=== PATIENT | male | born 1960 | race Caucasian/White ===

== ENCOUNTER 2019-12-04 16:48 | Inpatient (IN) | payer OTHER ==
[2019-12-04] MEDS ORDERED: SODIUM CHLORIDE 0.9% 500 ML INFUS.BAG IV ONE (16:57)
[2019-12-04] MEDS ORDERED: METOCLOPRAMIDE HCL INJECTION 10 MG/2 ML VIAL IVPB ONE (16:57)
--- NOTE | 2019-12-04 16:57 | PDOC ---
Rapid Medical Evaluation Time Seen by Provider: 12/04/19 16:53 Medical Evaluation: 12/04/19 16:53 I performed a brief in-person evaluation of this patient. Pt is a 59 y/o male with h/o [place] LAD with stent, HTN, HLD who presents with a left sided ABBASI over the eye for the last 1 week. The ABBASI is now spreading to the R side. Tried Advil without much relief, took Claritin without relief. Ice packs help. Pertinent physical exam findings: No tenderness with tapping over the L temporal region. Speaking in full sentences. I have ordered the following: saline lock, reglan, benadryl, ct head; will defer lab orders to treating provider Patient to proceed to ED for further evaluation. Discharge Disposition - Diagnosis Headache - Referrals - Patient Instructions - Post Discharge Activity
[2019-12-04 18:05] LABS: BASO % 0.5 % (0-2.0); EOS % 1.2 % (0-4.5); HEMATOCRIT 43.7 % (35.4-49); HEMOGLOBIN 14.8 GM/dL (11.7-16.9); LYMPH % 17.2 % (8-40); MCHC 33.9 g/dl (32.0-35.9); MEAN CELL VOLUME 100.3 fl (80-96); MEAN PLT VOLUME 9.4 fl (7.5-11.1); MONO % 8.2 % (3.8-10.2); NEUT % 72.9 % (42.8-82.8); PLATELET COUNT 211 K/MM3 (134-434); RBC 4.35 M/mm3 (4.00-5.60); RDW 13.7 % (11.9-15.9); WHITE BLOOD COUNT 12.2 K/mm3 (4.0-10.0)
--- NOTE | 2019-12-04 18:27 | PDOC ---
History of Present Illness - General Chief Complaint: Headache Stated Complaint: HEADACHE Time Seen by Provider: 12/04/19 16:53 - History of Present Illness Initial Comments: The pt is a 59M w/ a history of NC (s/p stent 2005, Plavix/ASA), HTN, HLD who presents for evaluation of 1 week of ABBASI. He reports falling and hitting his head 10 days ago w/o LOC but otherwise no other incidents. His ABBASI started 7 days ago, if L frontal, radiates diffusely, is constant but waxes and wanes, and is not exacerbated or alleviated by anything he can identify. Pt has tried Advil with minimal relief. Pt denies vision changes, N/V, chest pain, trouble breathing, changes in sensation/strength, LOC, dizziness PMH: HTN, HLD, NC (s/p stent) PSH: Multiple b/l eye surgeries Meds: ASA, Plavix, HTN meds, statin Allergies: Denies SH: Smokes 1ppd, Social EtOH, Denies illicit drug use 12/04/19 18:22 Past History - Medical History Allergies/Adverse Reactions: Allergies Allergy/AdvReac Type Severity Reaction Status Date / Time No Known Allergies Allergy Verified 12/04/19 16:56 Home Medications: Ambulatory Orders Carvedilol Phosphate [Carvedilol ER] 10 mg PO DAILY 12/04/19 Clopidogrel Bisulfate [Plavix] 75 mg PO DAILY 12/04/19 Lisinopril [Prinivil] 10 mg PO DAILY 12/04/19 Rosuvastatin Calcium [Crestor] 10 mg PO HS 12/04/19 Cardiac Disorders: Yes (CAD STENT AGE 46 LAD) COPD: No HTN: Yes - Psycho-Social/Smoking History Smoking History: Current every day smoker Number of Cigarettes Smoked Daily: 20 Information on smoking cessation initiated: Yes - Substance Abuse Hx (Audit-C & DAST Scrn) How often the patient has a drink containing alcohol: 2-4 times / month Score: In Men: 4 or > Positive; In Women: 3 or > Positive: 2 Screen Result (Pos requires Nsg. Audit-10AR): Negative In the last yr the pt used illegal drug/Rx for NonMed reason: No Score: Yes response is considered Positive: 0 Screen Result (Positive result requires Nsg. DAST-10): Negative Review of Systems - Review of Systems Able to Perform ROS?: Yes Comments:: GENERAL/CONSTITUTIONAL: No fever or chills. No weakness HEAD, EYES, EARS, NOSE AND THROAT: No change in vision. No change in hearing. No sore throat CARDIOVASCULAR: No chest pain or shortness of breath RESPIRATORY: Denies cough, hemoptysis GASTROINTESTINAL: No nausea, vomiting, diarrhea or constipation GENITOURINARY: No dysuria, frequency, or change in urination MUSCULOSKELETAL: No joint or muscle swelling or pain. No neck or back pain SKIN: No rash NEUROLOGIC: No vertigo, loss of consciousness, or change in strength/sensation ENDOCRINE: No increased thirst. No abnormal weight change HEMATOLOGIC/LYMPHATIC: No anemia, easy bleeding, or history of blood clots ALLERGIC/IMMUNOLOGIC: No hives or skin allergy 12/04/19 18:30 Is the patient limited Kosovan proficient: No *Physical Exam - Vital Signs Last Vital Signs Temp Pulse Resp BP Pulse Ox 98.8 F 87 18 136/88 98 12/04/19 16:56 12/04/19 16:56 12/04/19 16:56 12/04/19 16:56 12/04/19 16:56 - Physical Exam GENERAL: Awake, alert, and oriented to person/place/time, in no acute distress HEAD: No signs of trauma, normocephalic, atraumatic EYES: Anisocoria (reported chronic 2/2 previous surgeries), pupils reactive, EOMI, sclera anicteric, conjunctiva clear ENT: Hearing grossly normal, nares patent, oropharynx clear without exudates. No uvular deviation. Moist mucosa LUNGS: No distress, speaks in full sentences, clear to auscultation bilaterally HEART: Regular rate and rhythm, normal S1 and S2, no murmurs appreciated, peripheral pulses normal and equal bilaterally ABDOMEN: Soft, nontender, normoactive bowel sounds. No guarding, no rebound EXTREMITIES: Normal inspection, Normal range of motion, no edema. No clubbing or cyanosis NEUROLOGICAL: Cranial nerves II through XII grossly intact. Normal speech, normal gait, no focal sensorimotor deficits SKIN: Warm, Dry 12/04/19 18:30 ED Treatment Course - LABORATORY CBC & Chemistry Diagram: 12/04/19 18:00 12/04/19 18:00 - Medications Given in the ED: ED Medications Discontinued Medications Generic Name Dose Route Start Last Admin Trade Name Freq PRN Reason Stop Dose Admin Diphenhydramine HCl 25 mg 12/04/19 16:57 12/04/19 18:03 Benadryl Injection - IVPUSH 12/04/19 16:58 Not Given ONCE ONE Metoclopramide HCl 10 mg 12/04/19 16:57 12/04/19 18:03 Reglan Injection - IVPB 12/04/19 16:58 Not Given ONCE ONE Sodium Chloride 1,000 ml 12/04/19 16:57 12/04/19 18:03 Normal Saline - IV 12/04/19 16:58 1,000 ml ONCE ONE Administration Medical Decision Making - Medical Decision Making The pt is a 59M w/ a history of NC (s/p stent 2005, Plavix/ASA), HTN, HLD who presents for evaluation of 1 week of ABBASI w/o associated neurol Labs, meds, and imaging ordered from [facility]/Pt initially worked up in [facility] -Benadryl, Reglan, IVF given CT head w/ acute subdural hematoma superifical to the left tentorium, medial to the anterior hippocampus, and left occipital lobe, and seen extending superiorly over the posterior interhemispheric falx above the splenium of the corpus callosum Case discussed w/ Dr. Hannon, agrees with transfer to [facility] for neurocritical care evaluation COVID swab sent WBC 12.2 No anemia Lytes overall unremarkable No ANUP LFTs overall unremarkable [facility] Transfer center contacted, awaiting return call from [facility] ECG w/ NSR; HR 77; QTc 409; no axis deviation; no acute ischemic changes At time of signout, pt still A&Ox3 w/o any neurologic deficits Pt refusing transfer to [facility] and states he has an accepting physician at [place] and is obtaining the name/specialty at this time 12/04/19 18:51 Pt accepted to [place] by Dr. Burkett ([facility]) 12/04/19 18:59 Discharge - Discharge Information Problems reviewed: Yes Clinical Impression/Diagnosis: Subdural hematoma Headache Qualifiers: Headache type: unspecified Headache chronicity pattern: acute headache Intractability: not intractable Qualified Code(s): R51 - Headache Condition: Guarded Disposition: TRANSFER ACUTE CARE/OTHER HOSP - Admission No - Follow up/Referral Referrals: Arnaldo Sanchez [Primary Care Provider] - - Patient Discharge Instructions - Post Discharge Activity - Transfer to Acute Care Facility Receiving Facility Name: [facility] Accepting Physician:: Dr. Burkett
[2019-12-04 18:28] LABS: INR 0.97 (0.83-1.09); PROTHROMBIN TIME (PATIENT) 11.5 SEC (9.7-13.0)
[2019-12-04 18:31] LABS: ACTIVATED PTT 31.9 SECONDS (25.2-36.5)
[2019-12-04 18:33] LABS: BILIRUBIN,TOTAL 0.5 mg/dL (0.2-1); BLOOD UREA NITROGEN 9.1 mg/dL (7-18); CALCIUM 9.1 mg/dL (8.5-10.1); CREATININE 0.7 mg/dL (0.55-1.3); POTASSIUM 4.9 mmol/L (3.5-5.1); TOT PROT 7.7 g/dl (6.4-8.2)
--- NOTE | 2019-12-04 18:35 | PDOC ---
*Physical Exam - Vital Signs Last Vital Signs Temp Pulse Resp BP Pulse Ox 98.8 F 87 18 136/88 98 12/04/19 16:56 12/04/19 16:56 12/04/19 16:56 12/04/19 16:56 12/04/19 16:56 - Physical Exam 12/04/19 18:26 awake alert lungs clear bilat heart rrr no mrg abd sot nt nd. ext wwp. nuero GCS 15. 5/5 all four ext. CN II - XII intact. speech clear alert oriented x 3. ED Treatment Course - LABORATORY CBC & Chemistry Diagram: 12/04/19 18:00 12/04/19 18:00 - ADDITIONAL ORDERS Additional order review: 12/04/19 18:00 RBC 4.35 MCV 100.3 H MCHC 33.9 RDW 13.7 MPV 9.4 Neutrophils % 72.9 Lymphocytes % 17.2 Monocytes % 8.2 Eosinophils % 1.2 Basophils % 0.5 - Medications Given in the ED: ED Medications Discontinued Medications Generic Name Dose Route Start Last Admin Trade Name Natacha PRN Reason Stop Dose Admin Diphenhydramine HCl 25 mg 12/04/19 16:57 12/04/19 18:03 Benadryl Injection - IVPUSH 12/04/19 16:58 Not Given ONCE ONE Metoclopramide HCl 10 mg 12/04/19 16:57 12/04/19 18:03 Reglan Injection - IVPB 12/04/19 16:58 Not Given ONCE ONE Sodium Chloride 1,000 ml 12/04/19 16:57 12/04/19 18:03 Normal Saline - IV 12/04/19 16:58 1,000 ml ONCE ONE Administration Medical Decision Making - Medical Decision Making 12/04/19 18:27 59 yo male h/o HTN HLD CAD , x/p stents. here with headache x 7 day. described as retro orbital behind left eye. constant. no associated n/v . no focal weakness. no change to speech, or vision changes. did have a minor head trauma 10 days ago, when slipped and hit his head on closet. no loc at the time. no other complaints. did not take anything for pain today. take asa and plavix daily, took today. PCP Daniel Discharge - Discharge Information Clinical Impression/Diagnosis: Headache - Follow up/Referral Referrals: Arnaldo Sanchez [Primary Care Provider] - - Patient Discharge Instructions - Post Discharge Activity
--- NOTE | 2019-12-04 18:44 | PDOC ---
Attending Attestation - Resident Resident Name: JoyRicky gallo - ED Attending Attestation I have performed the following: I have examined & evaluated the patient, The case was reviewed & discussed with the resident, I agree w/resident's findings & plan, Exceptions are as noted - HPI HPI: 12/04/19 18:37 59 yo male h/o HTN HLD CAD , x/p stents. here with headache x 7 day. described as retro orbital behind left eye. constant. no associated n/v . no focal weakness. no change to speech, or vision changes. did have a minor head trauma 10 days ago, when slipped and hit his head on closet. no loc at the time. no other complaints. did not take anything for pain today. take asa and plavix daily, took today. - Physicial Exam PE: 12/04/19 18:37 awake alert lungs clear bilat heart rrr no mrg abd soft nt nd ext wwp. nuero CN II - XII intact, strength 5/5 all four ext. skin warm and dry . alert oriented x 3. speech clear. pupils reactive , right pupil is irregular ( chronic ) anisocoria. - Medical Decision Making 12/04/19 18:41 59 yo male h/o cad htn hld on asa plavix here with headache. differential ich, traumatic injury, migraine, electrolyte abnormality, anemia. plan ct head labs, pain medication. pt initially seen by JERSON RIOS , ct head ordered. ct head with subdural hematoma superifical to the left tentorium, medial to the anterior hippocampus, and left occipital lobe, and seen extending superiorly over the posterior interhemispheric falx above the splenium of the corpus callosum d/w nuersurgery developmental electronics assembler Dr Hannon, who agreeable for transfer out of system. [facility] transfer initiated. 12/04/19 18:44 12/04/19 19:01 pt refusing transfer to [facility], requesting transfer to [facility] 12/04/19 19:03 [facility] [place] called. d/w nuerosurgery ICU fellow. who accepted by dr Burkett, , fax sheet sent to [phone] 12/04/19 19:13 Discharge - Discharge Information Problems reviewed: Yes Clinical Impression/Diagnosis: Subdural hematoma Headache Qualifiers: Headache type: unspecified Headache chronicity pattern: acute headache Intractability: not intractable Qualified Code(s): R51 - Headache Condition: Guarded Disposition: TRANSFER ACUTE CARE/OTHER HOSP - Admission No - Follow up/Referral Referrals: Arnaldo Sanchez [Primary Care Provider] - - Patient Discharge Instructions - Post Discharge Activity - Transfer to Acute Care Facility Receiving Facility Name: [facility]
[2019-12-04] MEDS ORDERED: ACETAMINOPHEN 1000 MG/100 ML VIAL (NON FORMULARY) IVPB ONE (19:23)
[2019-12-04] MEDS ORDERED: METOCLOPRAMIDE HCL INJECTION 10 MG/2 ML VIAL IVPUSH ONE (19:23)
--- NOTE | 2019-12-04 19:28 | PDOC ---
*Physical Exam - Vital Signs Last Vital Signs Temp Pulse Resp BP Pulse Ox 98.8 F 87 18 136/88 98 12/04/19 16:56 12/04/19 16:56 12/04/19 16:56 12/04/19 16:56 12/04/19 16:56 ED Treatment Course - LABORATORY CBC & Chemistry Diagram: 12/04/19 18:00 12/04/19 18:00 - ADDITIONAL ORDERS Additional order review: Laboratory Results 12/04/19 12/04/19 18:00 18:00 PT with INR 11.50 INR 0.97 PTT (Actin FS) 31.9 Sodium 133 L Potassium 4.9 Chloride 101 Carbon Dioxide 25 Anion Gap 7 L BUN 9.1 Creatinine 0.7 Est GFR (CKD-EPI)AfAm 119.72 Est GFR (CKD-EPI)NonAf 103.30 Random Glucose 105 Calcium 9.1 Total Bilirubin 0.5 AST 41 H ALT 39 Alkaline Phosphatase 119 H Total Protein 7.7 Albumin 4.0 12/04/19 18:00 RBC 4.35 MCV 100.3 H MCHC 33.9 RDW 13.7 MPV 9.4 Neutrophils % 72.9 Lymphocytes % 17.2 Monocytes % 8.2 Eosinophils % 1.2 Basophils % 0.5 - Medications Given in the ED: ED Medications Discontinued Medications Generic Name Dose Route Start Last Admin Trade Name Prasadq PRN Reason Stop Dose Admin Diphenhydramine HCl 25 mg 12/04/19 16:57 12/04/19 18:03 Benadryl Injection - IVPUSH 12/04/19 16:58 Not Given ONCE ONE Metoclopramide HCl 10 mg 12/04/19 16:57 12/04/19 18:03 Reglan Injection - IVPB 12/04/19 16:58 Not Given ONCE ONE Sodium Chloride 1,000 ml 12/04/19 16:57 12/04/19 18:03 Normal Saline - IV 12/04/19 16:58 1,000 ml ONCE ONE Administration Medical Decision Making - Medical Decision Making Pt was signed out to me by resident Dr. Nolasco, who explained the presentation, ED course, any pending results, and needed interventions. Pt pending transfer to [place] (day team spoke with Dr. Abdalla, Neuro ICU fellow). VSS and neuro exam unchanged from baseline. Pt receiving tylenol, reglan, benadryl for headache. Neuro ICU at [place] requesting repeat head CT for stability of bleed. Pt agreeable to plan. 12/04/19 19:25 Pt taken for repeat head CT. States headache improved after interventions. VSS. 12/04/19 21:57 CT unchanged from prior. Spoke with Dr. Canales (attending Dr. Hardy), accepted to neuro step-down unit. Pt pending transfer. BP 150s/80s, will medicate with IV labetalol push doses. 12/04/19 22:32 No step-down beds available, per transfer center. Will update us in the morning. Paged hospitalist team for admission. 12/04/19 23:00 Pt accepted to hospitalist team. Pt stable, comfortable. 12/04/19 23:45 Discharge - Discharge Information Problems reviewed: Yes Clinical Impression/Diagnosis: Subdural hematoma Headache Qualifiers: Headache type: unspecified Headache chronicity pattern: acute headache Intractability: not intractable Qualified Code(s): R51 - Headache Condition: Guarded - Admission Yes - Follow up/Referral Referrals: Arnaldo Sanchez [Primary Care Provider] - - Patient Discharge Instructions - Post Discharge Activity
[2019-12-04] MEDS ORDERED: ACETAMINOPHEN INJECTION 100 ML IVPB ONE (19:34)
[2019-12-04] MEDS ORDERED: METOCLOPRAMIDE HCL INJECTION 10 MG/2 ML VIAL ONE (19:34)
[2019-12-04] MEDS ORDERED: LABETALOL HCL 5 MG/1 ML (100MG/20 ML VIAL) IVPUSH ONE (22:29)
[2019-12-04] MEDS ORDERED: LABETALOL HCL 5 MG/1 ML (200MG/40ML VIAL) IVPB ONE (22:44)
[2019-12-05 01:20] VITALS: BMI 29.2
--- NOTE | 2019-12-05 05:58 | PN ---
Teaching Attending Note Name of Resident: Remy Luis ATTENDING PHYSICIAN STATEMENT I saw and evaluated the patient. I reviewed the resident's note and discussed the case with the resident. I agree with the resident's findings and plan as documented. SUBJECTIVE: OBJECTIVE: ASSESSMENT AND PLAN: Date of Service: December 04 2019 59 yo male h/o HTN HLD CAD , x/p stents. here with c/o headache x 7 days. Patient did have a minor head trauma 10 days ago, when slipped and hit his head on closet. Takes asa and plavix daily. CT head with subdural hematoma superifical to the left tentorium, medial to the anterior hippocampus, and left occipital lobe, and seen extending superiorly over the posterior interhemispheric falx above the splenium of the corpus callosum ED D/w neurosurgery front desk team member Dr Hannon, who agreeable for transfer out of system. [place] transfer initiated.
[2019-12-05] MEDS ORDERED: ACETAMINOPHEN 325 MG TABLET (FP) PO ONE (06:42)
[2019-12-05] MEDS ORDERED: oxyCODONE HCL 5 MG TABLET PO PRN (07:04)
[2019-12-05 07:33] LABS: PROTHROMBIN TIME (PATIENT) 11.8 SEC (9.7-13.0)
[2019-12-05 07:36] LABS: ACTIVATED PTT 31.7 SECONDS (25.2-36.5)
[2019-12-05 07:52] LABS: BASO % 0.3 % (0-2.0); EOS % 1.4 % (0-4.5); HEMATOCRIT 40.9 % (35.4-49); HEMOGLOBIN 14.1 GM/dL (11.7-16.9); LYMPH % 17.1 % (8-40); MCH 34.2 pg (25.7-33.7); MCHC 34.4 g/dl (32.0-35.9); MEAN CELL VOLUME 99.6 fl (80-96); MEAN PLT VOLUME 9.4 fl (7.5-11.1); MONO % 9.6 % (3.8-10.2); NEUT % 71.6 % (42.8-82.8); PLATELET COUNT 204 K/MM3 (134-434); RDW 13.5 % (11.9-15.9); WHITE BLOOD COUNT 10.7 K/mm3 (4.0-10.0)
--- NOTE | 2019-12-05 07:56 | HP ---
CHIEF COMPLAINT: worsening headache s/p fall PCP: HISTORY OF PRESENT ILLNESS: Pt slipped on clothes in a closet and hit his head. Denied LOC. Went to work that day, but later worsened for a few days. The pain was L sideded frontal headache that waxed and wanted. The pain is worse with cough. Claritin & advil did not relieve the pain. However, ice packs improved the symptoms. No previous admissions. ER course was notable for: (1) WBC 12.2, Na+ 133 (2)CT head w/ acute subdural hematoma superifical to the left tentorium, medial to the anterior hippocampus, and left occipital lobe, and seen extending superiorly over the posterior interhemispheric falx above the splenium of the corpus callosum (3) Benadryl, Reglan, IVF given (4) EKG: NSR, possible anterior infarct, age undetermined Recent Travel: denies PAST MEDICAL HISTORY: HTN, HLD, ND in LAD (s/p stent), idiopathic "uveitis" PAST SURGICAL HISTORY: 3 operations for glaucoma Social History: Smokin ppd X ~40 yrs -social drinker -no drugs Allergies No Known Allergies Allergy (Verified 12/04/19 16:56) Family history none HOME MEDICATIONS: Home Medications Medication Instructions Recorded Carvedilol Phosphate [Carvedilol 10 mg PO DAILY 12/04/19 ER] Clopidogrel Bisulfate [Plavix] 75 mg PO DAILY 12/04/19 Lisinopril [Prinivil] 10 mg PO DAILY 12/04/19 Rosuvastatin Calcium [Crestor] 10 mg PO HS 12/04/19 REVIEW OF SYSTEMS CONSTITUTIONAL: Absent: fever, chills, diaphoresis, generalized weakness, malaise, loss of appetite, weight change HEENT: Absent: rhinorrhea, nasal congestion, throat pain, throat swelling, difficulty swallowing, mouth swelling, ear pain, eye pain, visual changes CARDIOVASCULAR: Absent: chest pain, syncope, palpitations, irregular heart rate, lightheadedness, peripheral edema RESPIRATORY: Absent: cough, shortness of breath, dyspnea with exertion, orthopnea, wheezing, stridor, hemoptysis GASTROINTESTINAL: Absent: abdominal pain, abdominal distension, nausea, vomiting, diarrhea, constipation, melena, hematochezia GENITOURINARY: Absent: dysuria, frequency, urgency, hesitancy, hematuria, flank pain, genital pain MUSCULOSKELETAL: Absent: myalgia, arthralgia, joint swelling, back pain, neck pain SKIN: Absent: rash, itching, pallor HEMATOLOGIC/IMMUNOLOGIC: Absent: easy bleeding, easy bruising, lymphadenopathy, frequent infections ENDOCRINE: Absent: unexplained weight gain, unexplained weight loss, heat intolerance, cold intolerance NEUROLOGIC: headache Absent: focal weakness or paresthesias, dizziness, unsteady gait, seizure, mental status changes, bladder or bowel incontinence PSYCHIATRIC: Absent: anxiety, depression, suicidal or homicidal ideation, hallucinations. PHYSICAL EXAMINATION Vital Signs - 24 hr 12/04/19 12/04/19 12/04/19 16:56 19:47 22:26 Temperature 98.8 F Pulse Rate 87 Pulse Rate [ 67 65 Radial] Respiratory 18 20 18 Rate Blood Pressure 136/88 Blood Pressure 154/84 147/84 [Right Arm] O2 Sat by Pulse 98 99 99 Oximetry (%) 12/04/19 12/05/19 12/05/19 23:56 01:15 01:23 Temperature 98.7 F Pulse Rate 78 Pulse Rate [ Radial] Respiratory 20 Rate Blood Pressure 159/83 Blood Pressure 139/98 [Right Arm] O2 Sat by Pulse 99 99 Oximetry (%) 12/05/19 12/05/19 03:00 06:00 Temperature 99.1 F Pulse Rate 62 72 Pulse Rate [ Radial] Respiratory 16 Rate Blood Pressure 122/62 142/90 Blood Pressure [Right Arm] O2 Sat by Pulse Oximetry (%) GENERAL: Awake, alert, and fully oriented, in no acute distress. HEENT: NT, NC, head not TTP, No lid lag. MMM LUNGS: Breath sounds equal, clear to auscultation bilaterally. No wheezes, and no crackles. No accessory muscle use. HEART: Regular rate and rhythm, normal S1 and S2 2/6 systolic murmur L sternal border ABDOMEN: Soft, nontender, not distended, normoactive bowel sounds, no guarding, no rebound, no masses. MUSCULOSKELETAL: Normal range of motion at all joints. No bony deformities or tenderness. No CVA tenderness. UPPER EXTREMITIES: 2+ pulses, warm, well-perfused. No cyanosis. No clubbing. No peripheral edema. LOWER EXTREMITIES: 2+ pulses, warm, well-perfused. No calf tenderness. No peripheral edema. NEUROLOGICAL: Cranial nerves II-XII intact. Normal speech. Normal gait. PSYCHIATRIC: Cooperative. Good eye contact. Appropriate mood and affect. SKIN: 2 macules on upper back that appear like seborrhic keratoses Laboratory Results - last 24 hr 12/04/19 12/04/19 12/04/19 18:00 18:00 18:00 WBC 12.2 H RBC 4.35 Hgb 14.8 Hct 43.7 MCV 100.3 H MCH 34.0 H MCHC 33.9 RDW 13.7 Plt Count 211 MPV 9.4 Absolute Neuts (auto) 8.9 H Neutrophils % 72.9 Lymphocytes % 17.2 Monocytes % 8.2 Eosinophils % 1.2 Basophils % 0.5 Nucleated RBC % 0 PT with INR 11.50 INR 0.97 PTT (Actin FS) 31.9 Sodium 133 L Potassium 4.9 Chloride 101 Carbon Dioxide 25 Anion Gap 7 L BUN 9.1 Creatinine 0.7 Est GFR (CKD-EPI)AfAm 119.72 Est GFR (CKD-EPI)NonAf 103.30 Random Glucose 105 Calcium 9.1 Total Bilirubin 0.5 AST 41 H ALT 39 Alkaline Phosphatase 119 H Total Protein 7.7 Albumin 4.0 12/05/19 06:48 WBC RBC Hgb Hct MCV MCH MCHC RDW Plt Count MPV Absolute Neuts (auto) Neutrophils % Lymphocytes % Monocytes % Eosinophils % Basophils % Nucleated RBC % PT with INR 11.80 INR 1.00 PTT (Actin FS) 31.7 Sodium Potassium Chloride Carbon Dioxide Anion Gap BUN Creatinine Est GFR (CKD-EPI)AfAm Est GFR (CKD-EPI)NonAf Random Glucose Calcium Total Bilirubin AST ALT Alkaline Phosphatase Total Protein Albumin ASSESSMENT/PLAN: 59 YO M PMH HTN, HLD, ND in LAD (s/p stent), idiopathic "uveitis" p/w worsening headache s/p fall. Admitted for sub-dural hematoma. #Sub-dural Hematoma -Pt accepted to [facility]. Waiting for bed -will keep NPO -hold ASA, plavix #HTN IV labetalol #DVT ppx SCDs #FEN no IVF monitor lytes NPO #DISPO maintain tele transfer to [facility] when bed is available. Visit type - Emergency Visit Emergency Visit: Yes ED Registration Date: 12/04/19 Care time: The patient presented to the Emergency Department on the above date and was hospitalized for further evaluation of their emergent condition. - New Patient This patient is new to me today: Yes Date on this admission: 12/05/19 - Critical Care Critical Care patient: No ATTENDING PHYSICIAN STATEMENT I saw and evaluated the patient. I reviewed the resident's note and discussed the case with the resident. I agree with the resident's findings and plan as documented. SUBJECTIVE: OBJECTIVE: ASSESSMENT AND PLAN:
[2019-12-05 08:00] LABS: CALCIUM 8.4 mg/dL (8.5-10.1); CHLORIDE 105 mmol/L (98-107); GLUCOSE,RANDOM 110 mg/dL (74-106); MAGNESIUM 2.3 mg/dL (1.8-2.4); POTASSIUM 4.2 mmol/L (3.5-5.1); SODIUM 135 mmol/L (136-145)
--- NOTE | 2019-12-05 08:02 | PN ---
Progress Note (short form) - Note Progress Note: NEUROSURGERY CONSULT DICTATED Chart reviewed History obtained H/o HTN HLD CAD s/p stents c/o headache x 7 days over retro-orbital region. constant. no associated n/v . no focal weakness. No speech or vision changes. Fell 10 days ago, when slipped and hit his head on closet. No LOC, N/V, visual changes, weakness, seizure, no other complaints. Balance good PE: AF, VSS General- unremarkable CN- intact; Motor- 5/5 withotu drift; Sensation- intact LT; DTR- physiological; Cerebellar- mild LFTN dysmetria Head CT (prelim) : tentorial SDH with on mass effect or shift, no HCP Head CT f/u (prelim): similar findings Stable traumatic subacute L tentorial SDH No neurosurgical intervention indicated Hold ASA/plavix x [address] prior to resuming ASA/plavix Smoking cessation urged Short pulse of steroids may help H/A Cardiology input
[2019-12-05 08:07] LABS: ALBUMIN 3.7 g/dl (3.4-5.0); ALK PHOS 115 U/L (45-117); ANION GAP 7 MMOL/L (8-16); BILIRUBIN,TOTAL 0.4 mg/dL (0.2-1); BLOOD UREA NITROGEN 9.2 mg/dL (7-18); CO2 24 mmol/L (21-32); CREATININE 0.8 mg/dL (0.55-1.3); PHOSPHOROUS 3.5 mg/dL (2.5-4.9); SGOT/AST 18 U/L (15-37); SGPT/ALT 33 U/L (13-61)
[2019-12-05] MEDS ORDERED: PT OWN MED DRAWER 7, Y5N ONE ×2 (08:55→09:34)
[2019-12-05] MEDS ORDERED: LISINOPRIL 10 MG TABLET (FP) PO SCH (10:00)
[2019-12-05] MEDS ORDERED: CARVEDILOL PHOSPHATE CR 10 MG CAPSULE PO SCH (10:00)
--- NOTE | 2019-12-05 10:09 | PN ---
Teaching Attending Note Name of Resident: Jamarcus Foley ATTENDING PHYSICIAN STATEMENT I saw and evaluated the patient. I reviewed the resident's note and discussed the case with the resident. I agree with the resident's findings and plan as documented. SUBJECTIVE: Seen and examined at bedside. Patient is alert and oriented x3, cranial nerves II through XII intact, no focal deficits. Is hemodynamically stable pending transfer to [place] for treatment of subdural hematoma. OBJECTIVE: Last Vital Signs Temp Pulse Resp BP Pulse Ox 98.3 F 72 17 123/67 94 L 12/05/19 09:06 12/05/19 09:06 12/05/19 09:06 12/05/19 09:06 12/05/19 09:06 PE: Per resident note Labs/Imaging: reviewed ASSESSMENT AND PLAN: 59-year-old male past medical history of hypertension, hyperlipidemia, [place] status post stents who presents with headaches after slipping and falling in his closet. Patient found to have subdural hematoma. Pending transfer to [place] #Subdural hematoma Neurology on board: Appreciate recommendations. Per neurosurgery no neurosurgical intervention indicated. Will confirm as to whether transfer to [place] is required. Transfer to [place] pending Hold ASA/Plavix for 1 week #History of CAD with stents Hold aspirin and Plavix for 1 week #Hypertension Continue home medications #Hyperlipidemia Continue home statin
--- NOTE | 2019-12-05 13:44 | PN ---
Physical Exam: SUBJECTIVE: Patient seen and examined at bedside. The patient denied any blurry vision, numbness, weakness, fever/chills, diarrhea, constipation, or nausea. When told that the neurosurgeon feels that the patient may not need any treatment for his subdural hematoma, the patient reported that he would still like to be transferred to [place]. OBJECTIVE: Vital Signs Period Temp Pulse Resp BP Sys/Manley Pulse Ox Last 24 Hr 98.3 F-99.1 F 62-87 16-20 122-159/62-98 94-99 GENERAL: The patient is awake, alert, and fully oriented, in no acute distress. HEAD: Normal with no signs of trauma. EYES: PERRL, extraocular movements intact. No ptosis. ENT: Ears normal, nares patent, oropharynx clear without exudates, moist mucous membranes. NECK: Trachea midline, full range of motion, supple. LUNGS: Breath sounds equal, clear to auscultation bilaterally, no wheezes, no crackles, no accessory muscle use. HEART: Regular rate and rhythm, S1, S2 without murmur, rub or gallop. ABDOMEN: Soft, nontender, nondistended, normoactive bowel sounds, no guarding, no rebound, no masses. EXTREMITIES: 2+ pulses, warm, well-perfused, no edema. NEUROLOGICAL: Cranial nerves II through XII grossly intact. Normal speech, gait not observed. Muscle strength +5/5 bilaterally in upper and lower extremities. Sensation intact bilaterally in upper and lower extremities. DTR's +2/4 bilaterally in upper and lower extremities. PSYCH: Normal mood, normal affect. SKIN: Warm, dry, normal turgor, no rashes or lesions noted Laboratory Results - last 24 hr 12/04/19 12/04/19 12/04/19 18:00 18:00 18:00 WBC 12.2 H RBC 4.35 Hgb 14.8 Hct 43.7 MCV 100.3 H MCH 34.0 H MCHC 33.9 RDW 13.7 Plt Count 211 MPV 9.4 Absolute Neuts (auto) 8.9 H Neutrophils % 72.9 Lymphocytes % 17.2 Monocytes % 8.2 Eosinophils % 1.2 Basophils % 0.5 Nucleated RBC % 0 PT with INR 11.50 INR 0.97 PTT (Actin FS) 31.9 Sodium 133 L Potassium 4.9 Chloride 101 Carbon Dioxide 25 Anion Gap 7 L BUN 9.1 Creatinine 0.7 Est GFR (CKD-EPI)AfAm 119.72 Est GFR (CKD-EPI)NonAf 103.30 Random Glucose 105 Calcium 9.1 Phosphorus Magnesium Total Bilirubin 0.5 AST 41 H ALT 39 Alkaline Phosphatase 119 H Creatine Kinase Troponin I Total Protein 7.7 Albumin 4.0 12/05/19 12/05/19 12/05/19 06:48 06:48 06:48 WBC 10.7 H RBC 4.10 Hgb 14.1 Hct 40.9 MCV 99.6 H MCH 34.2 H MCHC 34.4 RDW 13.5 Plt Count 204 MPV 9.4 Absolute Neuts (auto) 7.6 Neutrophils % 71.6 Lymphocytes % 17.1 Monocytes % 9.6 Eosinophils % 1.4 Basophils % 0.3 Nucleated RBC % 0 PT with INR 11.80 INR 1.00 PTT (Actin FS) 31.7 Sodium 135 L Potassium 4.2 Chloride 105 Carbon Dioxide 24 Anion Gap 7 L BUN 9.2 Creatinine 0.8 Est GFR (CKD-EPI)AfAm 113.33 Est GFR (CKD-EPI)NonAf 97.78 Random Glucose 110 H Calcium 8.4 L Phosphorus 3.5 Magnesium 2.3 Total Bilirubin 0.4 AST 18 ALT 33 Alkaline Phosphatase 115 Creatine Kinase 54 Troponin I < 0.02 Total Protein 7.0 Albumin 3.7 Active Medications Generic Name Dose Route Start Last Admin Trade Name Freq PRN Reason Stop Dose Admin Carvedilol 10 mg 12/05/19 10:00 12/05/19 09:37 Coreg Cr - PO 10 mg DAILY [facility] Administration Lisinopril 10 mg 12/05/19 10:00 12/05/19 09:37 Prinivil PO 10 mg DAILY [facility] Administration Oxycodone HCl 10 mg 12/05/19 07:04 12/05/19 09:37 Roxicodone - PO 10 mg Q4H PRN Administration PAIN LEVEL 6-10 Rosuvastatin Calcium 10 mg 12/05/19 22:00 Crestor - PO [facility] ASSESSMENT/PLAN: 59 year old male patient with past medical history that includes CAD, HTN, and HLD, who presented to the ED with a headache for 7 days after hitting his head on a closet 10 days ago. 1. Subdural Hematoma - CT Head found a subdural hematoma - The patient is being transferred to [place] 2. HTN - The patient is taking lisinopril and carvedilol - Latest blood pressure is 123/67 3. HLD - The patient is taking Rosuvastatin # FEN - Monitoring electrolytes. Sodium controlled diet. DVT PPx - SCD's bilaterally. Plavix held secondary to Subdural Hematoma Dispo - Transferring to [place] per patient's wishes Visit type - Emergency Visit Emergency Visit: Yes ED Registration Date: 12/04/19 Care time: The patient presented to the Emergency Department on the above date and was hospitalized for further evaluation of their emergent condition. - New Patient This patient is new to me today: Yes Date on this admission: 12/05/19 - Critical Care Critical Care patient: No - Discharge Referral [facility]erred to [facility] Med P.C.: No ATTENDING PHYSICIAN STATEMENT I saw and evaluated the patient. I reviewed the resident's note and discussed the case with the resident. I agree with the resident's findings and plan as documented. SUBJECTIVE: OBJECTIVE: ASSESSMENT AND PLAN:
[2019-12-05 14:54] VITALS: TEMP 98.1
--- NOTE | 2019-12-05 16:31 | DS ---
Physical Exam: SUBJECTIVE: Patient seen and examined at bedside. The patient denied any blurry vision, numbness, weakness, fever/chills, diarrhea, constipation, or nausea. OBJECTIVE: Vital Signs Period Temp Pulse Resp BP Sys/Manley Pulse Ox Last 24 Hr 98.1 F-99.1 F 62-87 16-20 122-159/62-98 94-99 PHYSICAL EXAM GENERAL: The patient is awake, alert, and fully oriented, in no acute distress. HEAD: Normal with no signs of trauma. EYES: PERRL, extraocular movements intact. No ptosis. ENT: Ears normal, nares patent, oropharynx clear without exudates, moist mucous membranes. NECK: Trachea midline, full range of motion, supple. LUNGS: Breath sounds equal, clear to auscultation bilaterally, no wheezes, no crackles, no accessory muscle use. HEART: Regular rate and rhythm, S1, S2 without murmur, rub or gallop. ABDOMEN: Soft, nontender, nondistended, normoactive bowel sounds, no guarding, no rebound, no masses. EXTREMITIES: 2+ pulses, warm, well-perfused, no edema. NEUROLOGICAL: Cranial nerves II through XII grossly intact. Normal speech, gait not observed. Muscle strength +5/5 bilaterally in upper and lower extremities. Sensation intact bilaterally in upper and lower extremities. DTR's +2/4 bilaterally in upper and lower extremities. PSYCH: Normal mood, normal affect. SKIN: Warm, dry, normal turgor, no rashes or lesions noted LABS Laboratory Results - last 24 hr 12/04/19 12/04/19 12/04/19 18:00 18:00 18:00 WBC 12.2 H RBC 4.35 Hgb 14.8 Hct 43.7 MCV 100.3 H MCH 34.0 H MCHC 33.9 RDW 13.7 Plt Count 211 MPV 9.4 Absolute Neuts (auto) 8.9 H Neutrophils % 72.9 Lymphocytes % 17.2 Monocytes % 8.2 Eosinophils % 1.2 Basophils % 0.5 Nucleated RBC % 0 PT with INR 11.50 INR 0.97 PTT (Actin FS) 31.9 Sodium 133 L Potassium 4.9 Chloride 101 Carbon Dioxide 25 Anion Gap 7 L BUN 9.1 Creatinine 0.7 Est GFR (CKD-EPI)AfAm 119.72 Est GFR (CKD-EPI)NonAf 103.30 Random Glucose 105 Calcium 9.1 Phosphorus Magnesium Total Bilirubin 0.5 AST 41 H ALT 39 Alkaline Phosphatase 119 H Creatine Kinase Troponin I Total Protein 7.7 Albumin 4.0 12/05/19 12/05/19 12/05/19 06:48 06:48 06:48 WBC 10.7 H RBC 4.10 Hgb 14.1 Hct 40.9 MCV 99.6 H MCH 34.2 H MCHC 34.4 RDW 13.5 Plt Count 204 MPV 9.4 Absolute Neuts (auto) 7.6 Neutrophils % 71.6 Lymphocytes % 17.1 Monocytes % 9.6 Eosinophils % 1.4 Basophils % 0.3 Nucleated RBC % 0 PT with INR 11.80 INR 1.00 PTT (Actin FS) 31.7 Sodium 135 L Potassium 4.2 Chloride 105 Carbon Dioxide 24 Anion Gap 7 L BUN 9.2 Creatinine 0.8 Est GFR (CKD-EPI)AfAm 113.33 Est GFR (CKD-EPI)NonAf 97.78 Random Glucose 110 H Calcium 8.4 L Phosphorus 3.5 Magnesium 2.3 Total Bilirubin 0.4 AST 18 ALT 33 Alkaline Phosphatase 115 Creatine Kinase 54 Troponin I < 0.02 Total Protein 7.0 Albumin 3.7 HOSPITAL COURSE: Date of Admission:12/04/19 59 year old male patient with past medical history that includes CAD, HTN, and HLD, who presented to the ED with a headache for 7 days after hitting his head on a closet [address] Head found a subdural hematoma. The neurosurgeon recommend no neurosurgical intervention; however, the patient preferred transfer to [place] for further neurosurgical evaluation/intervention. The neurosurgeon also did not recommend Keppra, as it was 10 days since the initial injury. When the patient was told that the neurosurgeon feels that he may not need any treatment for his subdural hematoma, the patient reported that he would still like to be transferred to [place]. On transfer, the patient was instructed to not take any aspirin or plavix for at least 1 week to prevent any further bleeding in his brain, and to talk to his doctor about resuming aspirin or plavix as he may need a repeat CT Head before he could resume taking aspirin or plavix. The patient was also instructed about smoking cessation. Date of Discharge: 12/05/19 Minutes to complete discharge: 40 Discharge Summary Problems reviewed: Yes Reason For Visit: SUBDURAL HEMATOMA Current Active Problems Headache (Acute) Subdural hematoma (Acute) Condition: Guarded - Instructions Diet, Activity, Other Instructions: You were admitted to the hospital due to hitting your head and due to a headache. While you were at the hospital, you were evaluated with blood work, lab work, and imaging. Based on our evaluation, you had blood next to your brain called a "subdural hematoma". As per requested, you were set up for transfer to [place] for further evaluation and intervention. Recommendation: Please do not taken any Aspirin and Plavix for at least 1 week to prevent any further bleeding in your brain. Our neurosurgeon did not recommend Keppra at this time, as you are 10 days since your initial injury. Please talk to your doctor before resuming any Aspirin or Plavix, as you may need another CAT scan of your head again to ensure that it is safe to resume taking Aspirin and Plavix. Please do not smoke as this can damage the blood vessels of the brain. Imaging Findings: A CAT scan of your head showed blood next to your brain on the left side called a "subdural hematoma". Medications: Please take all of your medications as prescribed. Follow ups: Please follow up with the primary care physician Dr. Arnaldo Sanchez. If you experience worsening symptoms, headache, shortness of breath, chest pain, or abdominal pain, please return to the emergency room or call 911. You have been accepted to [place] for further neurosurgical evaluation/intervention, and you will be transferred. Referrals: Arnaldo Sanchez [Primary Care Provider] - Disposition: TRANSFER ACUTE CARE/OTHER HOSP - Home Medications Comprehensive Discharge Medication List: Ambulatory Orders Carvedilol Phosphate [Carvedilol ER] 10 mg PO DAILY 12/04/19 Lisinopril [Prinivil] 10 mg PO DAILY 12/04/19 Rosuvastatin Calcium [Crestor] 10 mg PO HS 12/04/19 This patient is new to me today: Yes Date on this admission: 12/04/19 Emergency Visit: Yes ED Registration Date: 12/04/19 Care time: The patient presented to the Emergency Department on the above date and was hospitalized for further evaluation of their emergent condition. Critical Care patient: No - Discharge Referral Referred to [facility] Med P.C.: No ATTENDING PHYSICIAN STATEMENT I saw and evaluated the patient. I reviewed the resident's note and discussed the case with the resident. I agree with the resident's findings and plan as documented. SUBJECTIVE: OBJECTIVE: ASSESSMENT AND PLAN:
[2019-12-05 17:08] VITALS: BP 139/82; PULSE 64
--- NOTE | 2019-12-05 17:25 | EKG ---
Test Reason : Blood Pressure : / mmHG Vent. Rate : 077 BPM Atrial Rate : 077 BPM P-R Int : 154 ms QRS Dur : 090 ms QT Int : 362 ms P-R-T Axes : 051 030 046 degrees QTc Int : 409 ms NORMAL SINUS RHYTHM POSSIBLE ANTERIOR INFARCT , AGE UNDETERMINED ABNORMAL ECG NO PREVIOUS ECGS AVAILABLE Confirmed by MD Galdamez Edward ([id number]) on 12/05/2019 5:25:36 PM Referred By: Confirmed By:Greg Galdamez MD
[2019-12-05] MEDS ORDERED: ROSUVASTATIN CA 10 MG TABLET (FP) PO SCH (22:00)
--- NOTE | 2019-12-06 14:47 | CONS ---
DATE OF CONSULTATION: REQUESTING PHYSICIAN: Dr. Torre CONSULTING PHYSICIAN: Og Hess MD, CHIEF COMPLAINT: Left tentorial subdural hematoma. HISTORY OF PRESENT ILLNESS: The patient is a 59-year-old right-handed male with history of hypertension, coronary artery disease, and hypercholesterolemia, who was status post coronary stent placement, who complains of 7 days of headache in the retroorbital region on the left side. The patient said it was constant with no associated nausea, vomiting, weakness, speech or visual changes. He had fallen 10 days ago, mechanically, after he tripped, and he hit his head on a closet. He denies loss of consciousness at the time. His balance has been good since. He has no weakness, numbness, or other new complaints. PAST MEDICAL HISTORY: Significant of coronary artery disease, status post stent placement, hypertension, hypercholesterolemia, and smoking. MEDICATION: Medication previously included aspirin and Plavix. He is also on Coreg and Prinivil and Crestor. There is no known drug allergy. Family history is noncontributory. SOCIAL HISTORY: He does still smoke and is urged strongly to quit smoking. He drinks alcohol socially. He lives at home. Review of systems is otherwise negative for major constitutional, head and neck, cardiovascular, pulmonary, gastrointestinal, genitourinary, endocrinological, neurological, or psychological problem except for the above. PHYSICAL EXAMINATION: Vital Signs: He is afebrile. Vital signs are stable. HEENT: Exam shows him to be normocephalic, atraumatic, anicteric. Neck: Supple with no lymphadenopathy, no carotid bruit. Coronary: Regular rhythm. Lungs: Clear. Abdomen: Benign. Extremities: No signs of DVT. Neurologic: He is awake and alert, oriented x4. Cranial nerves examination is intact, 2-12. Motor examination shows 5/5 strength. He has no drift. Sensory examination is intact to light touch. Deep tendon reflexes are physiological. Cerebellar examination demonstrated mild left-sided dysmetria. Laboratory examination shows a white blood cell count of 10.7, hemoglobin 14.1, platelet count 204,000, INR is 1, and PTT is 31.7. BUN 9.2 and creatinine 0.8. COVID-[address] scan of the head from yesterday at 5 p.m. and last night at 10 p.m. were reviewed. There is evidence of a left tentorial subdural hematoma. There is no significant mass effect or shift. There is no hydrocephalus. The blood is mostly the medial tentorium. IMPRESSION: 1. Probable traumatic left tentorial subdural hematoma. 2. Hypertension/coronary artery disease, status post stent placement. 3. Hypercholesterolemia. 4. Smoker. RECOMMENDATION: The patient presented with a traumatic mechanical fall 10 days ago and complains of left retroorbital headache for 7 days duration with no associated neurological deficit. He has no nausea, vomiting, visual changes, or speech difficulties. The blood will likely resolve on its own. This is a not a typical location for an AVM or aneurysm bleed. He has a clear history of trauma. The patient is already scheduled for transfer to [facility] from the emergency room earlier, but he is currently still awaiting a bed. Further evaluation and treatment could be conducted by treating neurology/neurosurgery and cardiology team at [place]. Aspirin and Plavix should be held for [address] scan of the head should be repeated in 1 week prior to reinitiation of the aspirin and Plavix regimen. OG HESS M.D. [id number]
== END 2019-12-05 17:17 | disposition short-term general hospital (02) | DRG 87 ==
LOC: JER 16:48 → JERBED 23:50 → J4S 12-05 02:07
PROVIDERS: ADMIT Internal Medicine; ATTEND Internal Medicine
DX: S06.5X0A Traumatic subdural hemorrhage without loss of consciousness, initial encounter (principal); I25.10 Atherosclerotic heart disease of native coronary artery without angina pectoris; I25.2 Old myocardial infarction; I10 Essential (primary) hypertension; E78.5 Hyperlipidemia, unspecified; W18.39XA Other fall on same level, initial encounter; Y92.89 Other specified places as the place of occurrence of the external cause
CPT/HCPCS: 36415; 70450-TC; 80053; 82550; 83735; 84100; 84484; 85025; 85610; 85730; 93005; 93010; 99285-25; J0131; U0003